=== PATIENT | male | born 1960 | race Caucasian/White ===

== ENCOUNTER 2020-03-21 08:31 | Outpatient (CLI) | payer OTHER ==
--- NOTE | 2020-03-21 13:01 | NM ---
RADIONUCLIDE PARATHYROID SCAN WITH PLANAR AND SPECT-CT IMAGES: HISTORY: Hyperparathyroidism, unspecified RADIOPHARMACEUTICAL:26.2mCi technetium 99m-sestamibi injected intravenously FINDINGS: There is physiologic uptake in the salivary glands and thyroid gland. There is a focus of persistently increased tracer localization in the projection of the left superior parathyroid gland. IMPRESSION: Left superior parathyroid adenoma.
== END 2020-03-21 08:32 | disposition home or self-care (01) ==
LOC: NM 08:31
PROVIDERS: ATTEND Otolaryngology Plastic Surgery within the Head & Neck
DX: E21.3 Hyperparathyroidism, unspecified (principal); D35.1 Benign neoplasm of parathyroid gland
CPT/HCPCS: 78072; A9500

== ENCOUNTER 2020-03-30 05:59 | Outpatient (CLI) | payer OTHER ==
[2020-03-31 14:47] LABS: SARS-CoV-2 MS2 Positive; SARS-CoV-2 N Gene Negative; SARS-CoV-2 S Gene Negative; SARS-CoV-2 by NAA Not Detected (NotDetected); SARS-CoV-2 orf1ab Negative
--- NOTE | 2020-04-02 15:39 | EKG ---
Test Reason : Blood Pressure : / mmHG Vent. Rate : 069 BPM Atrial Rate : 069 BPM P-R Int : 174 ms QRS Dur : 094 ms QT Int : 382 ms P-R-T Axes : 046 -45 043 degrees QTc Int : 409 ms Normal sinus rhythm Left anterior fascicular block Abnormal ECG No previous ECGs available Confirmed by RENETTA MARX M.D. ([id number] on 04/02/2020 3:39:01 PM Referred By: SYED Confirmed By:RENETTA MARX M.D.
== END 2020-03-30 06:00 | disposition home or self-care (01) ==
LOC: LABBT 05:59
PROVIDERS: ATTEND Otolaryngology Plastic Surgery within the Head & Neck
DX: Z01.818 Encounter for other preprocedural examination (principal); E21.3 Hyperparathyroidism, unspecified; Z20.828 Contact with and (suspected) exposure to other viral communicable diseases
CPT/HCPCS: 87635; 93005; 93010; U0003

== ENCOUNTER 2020-04-04 08:15 | Day surgery (SDC) | payer OTHER ==
[2020-03-30 12:37] VITALS: BMI 28.5
[2020-04-04] MEDS ORDERED: Fentanyl 100 MCG/2 ML VIAL ONE ×3 (08:44→12:51)
[2020-04-04 09:07] LABS: Hemoglobin 16.6 g/dL (14.0-18.0); Mean Corpuscular HGB CONC 34.4 g/dL (32.0-36.0); Mean Corpuscular Hemoglobin 33.5 pg (27.0-31.0); Mean Corpuscular Volume 97.3 fL (78.0-98.0); Platelet Count 233 thou/uL (130-400); RBC Distribution Width 11.4 % (11.5-14.5); Red Blood Cell (RBC) Count 4.95 mill/uL (4.70-6.10); White Blood Cell (WBC) Count 8.2 thou/uL (4.8-10.8)
[2020-04-04 09:33] LABS: Anion Gap 15 mmol/L (10-20); BUN (Urea Nitrogen) 10 mg/dL (8.4-25.7); Calc. Creatinine Clearance 121 mL/min (70-130); Calcium 11.9 mg/dL (7.8-10.44); Carbon Dioxide 22 mmol/L (23-31); Chloride 108 mmol/L (98-107); Estimated GFR-MDRD Greater than 90; Glucose 113 mg/dL (80-115); Potassium 3.7 mmol/L (3.5-5.1); Sodium 141 mmol/L (136-145)
[2020-04-04] MEDS ORDERED: Bacitracin Zinc Ointment 30 gm TUBE ONE (10:11)
[2020-04-04] MEDS ORDERED: Lidocaine 1% w/Epinephrine 1:100K 20 ML VIAL ONE (10:11)
[2020-04-04] MEDS ORDERED: Ondansetron PF 4 MG/2 ML Vial ONE (15:40)
[2020-04-04] MEDS ORDERED: PROPOFOL 200 MG/20 ML VIAL ONE (15:40)
[2020-04-04] MEDS ORDERED: Glycopyrrolate 0.2 MG/ML 5 ML SYRINGE ONE (15:40)
[2020-04-04] MEDS ORDERED: Rocuronium Bromide 10 MG/ML (10ML VIAL) ONE (15:40)
[2020-04-04] MEDS ORDERED: Lidocaine 1% PF 5 ML VIAL ONE (15:40)
[2020-04-04] MEDS ORDERED: PHENYLEPHRINE-NS 100 MCG/ML 10 ML SYRINGE ONE (15:40)
[2020-04-04] MEDS ORDERED: Dexamethasone 20 MG/5 ML VIAL ONE (15:40)
[2020-04-04] MEDS ORDERED: EPHEDRINE 25 MG/5 ML SYRINGE ONE (15:40)
--- NOTE | 2020-04-05 14:06 | OP ---
DATE OF PROCEDURE: 04/04/2020 PREOPERATIVE DIAGNOSIS: Hyperparathyroidism. POSTOPERATIVE DIAGNOSES: 1. Hyperparathyroidism. 2. Left superior parathyroid adenoma. PROCEDURES PERFORMED: 1. Left superior parathyroidectomy. 2. Intraoperative laryngeal nerve monitor. ESTIMATED BLOOD LOSS: Less than 5 mL. COMPLICATIONS: None. ANESTHESIA: GETA. DESCRIPTION OF PROCEDURE: The patient was taken to the operating room and placed supine on the table. General endotracheal anesthesia was obtained by the anesthesia staff. Using the indirect GlideScope, the laryngeal electrodes were confirmed to be between the vocal cords bilaterally. The tube was secured in the midline of the upper lip. Following this, shoulder roll was placed and the laryngeal nerve monitor was turned on and remained on throughout the procedure. Following this, a small incision approximately 3 cm in length was made overlying the left thyroid lobe. Dissection was carried through the skin and subcutaneous tissue. Subplatysmal flaps were elevated superiorly and inferiorly and the strap muscles were identified. The strap muscles were on this lateral aspect and the thyroid lobe was identified. Using retractors, the thyroid lobe was exposed and gentle blunt dissection was carried laterally around the left thyroid lobe. Gigantic, 0 to 3 cm parathyroid adenoma was immediately identified and extending medially adjacent to the capsule of the parathyroid adenoma. The bipolar electrocautery device was used to remove the parathyroid adenoma and create hemostasis. Following this, wound was irrigated. Valsalva was performed. There was no evidence of bleeding. Surgicel was placed within the surgical bed. The platysmal muscle was then closed using 3-0 Monocryl stitches and the 4-0 Monocryl subcuticular stitch was placed. Dermabond was placed over the skin. The patient tolerated the procedure well and the intraoperative laryngeal nerve monitor was turned off at this point. Job ID: [id number]
== END 2020-04-04 14:40 | disposition home or self-care (01) ==
LOC: SDC 08:15
PROVIDERS: ATTEND Otolaryngology Plastic Surgery within the Head & Neck
PROC: 0GBM0ZZ Excision of Left Superior Parathyroid Gland, Open Approach (ICD-10-PCS; principal; 2020-04-04)
DX: E21.3 Hyperparathyroidism, unspecified (principal); D35.1 Benign neoplasm of parathyroid gland; I11.9 Hypertensive heart disease without heart failure; E78.5 Hyperlipidemia, unspecified; F17.210 Nicotine dependence, cigarettes, uncomplicated; G89.29 Other chronic pain; M54.9 Dorsalgia, unspecified; Z79.899 Other long term (current) drug therapy
CPT/HCPCS: 36415; 80048; 85027; 88305; J1100; J2405; J2704; J3010

== ENCOUNTER 2020-04-16 09:21 | Outpatient (CLI) | payer OTHER ==
--- NOTE | 2020-04-16 12:35 | MRI ---
MRI CERVICAL SPINE WITHOUT CONTRST: INDICATION: Cervical stenosis. Neck pain. COMPARISON: Correlation is made to a prior CT of the cervical spine from 2008. FINDINGS: The cervical vertebrae maintain height and alignment. There are moderate degenerative changes of the cervical spine with osteophytes from the anterior vertebrae. Loss of disk space is prominent at C5- 6 and C6-7. Mild degenerative anterior wedging at C3, C4, C5, and C6 vertebrae. There is an intervertebral cyst at C2 which is stable from the prior CT. The findings at each level are described. C2-3: Posterior disk bulge and spondylosis efface the subarachnoid space. No central canal or xavier inal stenosis. At C3-4: Posterior disk bulge and spondylosis compress the anterior cord. Mild foraminal narrowing bilaterally due to facet and uncinate hypertrophy. Prominent facet arthrosis on the right. Moderate central canal stenosis with cord compression. Sagittal images show evidence of mild increased signa l within the cord to the left of midline suggesting early changes of myelomalacia associated with thi s cord compression. C4-5: Posterior disk bulge and spondylosis abut the mildly impinge on the anterior cord without sign ificant cord compression. Mild bilateral foraminal narrowing due to uncinate hypertrophy and facet h ypertrophy. C5-6: Posterior disk bulge and spondylosis efface the anterior subarachnoid space. No cord impingem ent. Mild left foraminal encroach. C6-7: There is a posterior disk bulge with spondylosis which impinges on and mildly flattens the ant erior cord. Bilateral foraminal narrowing due to facet and uncinate hypertrophy. C7-T1: Disk bulge and spondylosis efface the anterior subarachnoid space and abut the anterior cord without significant cord impingement or compression. IMPRESSION: Posterior disk and spondylitic changes produce central canal stenosis at multiple levels. There is s ignificant cord compression at C3-4 with evidence of early myelomalacia at this level within the cord . POS: AGW
== END 2020-04-16 09:22 | disposition home or self-care (01) ==
LOC: SCSMRI 09:21
PROVIDERS: ATTEND Orthopaedic Surgery Hand Surgery
DX: M48.02 Spinal stenosis, cervical region (principal); M47.812 Spondylosis without myelopathy or radiculopathy, cervical region; M50.81 Other cervical disc disorders, high cervical region; G95.89 Other specified diseases of spinal cord
CPT/HCPCS: 72141

== ENCOUNTER 2020-05-04 06:23 | Outpatient (CLI) | payer OTHER ==
[2020-05-04 16:30] LABS: SARS-CoV-2 MS2 Positive; SARS-CoV-2 N Gene Negative; SARS-CoV-2 S Gene Negative; SARS-CoV-2 by NAA Not Detected (NotDetected); SARS-CoV-2 orf1ab Negative
== END 2020-05-04 06:24 | disposition home or self-care (01) ==
LOC: LABBT 06:23
PROVIDERS: ATTEND Neurological Surgery
DX: M47.812 Spondylosis without myelopathy or radiculopathy, cervical region (principal); Z20.828 Contact with and (suspected) exposure to other viral communicable diseases
CPT/HCPCS: 87635; U0003

== ENCOUNTER 2020-05-09 07:12 | Day surgery (SDC) | payer OTHER ==
[2020-05-08 12:27] VITALS: BMI 27.8
--- NOTE | 2020-05-08 21:48 | HP ---
HISTORY OF PRESENT ILLNESS: Mr. Mendoza is a 60-year-old gentleman, referred to us by Dr. La for evaluation of upper extremity weakness and dysfunction. Reportedly since December, he has had weakness and numbness in his hands and then later into his legs. At this time, he is actually using a cane and at sometimes, he is unable to perform his normal activities of daily living. MRI scan of the cervical spine performed shows high-grade cervical stenosis at C3-C4 with signal change in the cervical spinal cord at this level. This most certainly is the culprit in his presentation. PAST MEDICAL HISTORY: Significant for; 1. Cataracts. 2. Hypertension. 3. Heart disease. PAST SURGICAL HISTORY: Parathyroidectomy. CURRENT MEDICATIONS: 1. Meloxicam. 2. Lisinopril. 3. Atorvastatin. 4. Tramadol. 5. Amlodipine. 6. Gabapentin. ALLERGIES: NO KNOWN DRUG ALLERGIES. ASSESSMENT: Cervical myelopathy. PLAN: Dr. Morales met with the patient, reviewed imaging, advocated for C3-C4 ACDF. He explained to the patient about risks, benefits, and alternatives to the procedure. The patient expressed understanding and elected to move forward with surgery as discussed. I do believe the patient is mentally competent and capable of making medical decisions for himself. We will move forward with surgery as planned. Job ID: [id number]
[2020-05-09] MEDS ORDERED: Fentanyl 100 MCG/2 ML VIAL ONE (08:23)
[2020-05-09] MEDS ORDERED: Midazolam HCl 2 mg/2 ml Vial ONE (08:23)
--- NOTE | 2020-05-09 10:07 | OP ---
DATE OF PROCEDURE: 05/09/2020 [employer] AND [employer] MAN: Rey Vargas PA-C INDICATION: Pain. DIAGNOSIS: Cervical spondylotic myelopathy. PROCEDURE PERFORMED: Anterior cervical diskectomy and fusion, C3-C4. ANESTHESIA: General. DESCRIPTION OF PROCEDURE: The patient was brought into the operating room and placed under general anesthesia. He was placed on the table in a supine position. A transverse incision was planned over the lateral aspect of the neck on the right. After prepping and draping and after an appropriate preoperative pause, the incision was created. The soft tissues were swept away from midline. The underlying platysma muscle was identified and incised. A blunt tissue plane anterior to the sternocleidomastoid muscle was used to gain access to the prevertebral space. Self-retaining retractors were placed. An annulotomy was performed in the C3-C4 disk space. All disk material as well as anterior and posterior osteophytes were removed. After completing the decompression, a 7-mm lordotic PEEK cage packed with allograft and autograft material was placed within the interbody space. A separate anterior cervical plate was then fashioned to the front of spine and secured with a total of 4 fixed screws. Midline and lateral structures were inspected and found to be free from significant trauma. The wound was irrigated. Hemostasis was maintained throughout. The wound was then closed in anatomic layers and a pressure dressing was applied. There were no known procedural complications. Job ID: [id number]
[2020-05-09] MEDS ORDERED: Tamsulosin HCl 0.4 MG CAP ONE (10:43)
[2020-05-09] MEDS ORDERED: Glycopyrrolate 0.2 MG/ML 5 ML SYRINGE ONE (12:04)
[2020-05-09] MEDS ORDERED: Ondansetron PF 4 MG/2 ML Vial ONE (12:04)
[2020-05-09] MEDS ORDERED: Dexamethasone 20 MG/5 ML VIAL ONE (12:04)
[2020-05-09] MEDS ORDERED: PHENYLEPHRINE-NS 100 MCG/ML 10 ML SYRINGE ONE (12:04)
[2020-05-09] MEDS ORDERED: Rocuronium Bromide 10 MG/ML (10ML VIAL) ONE (12:04)
[2020-05-09] MEDS ORDERED: Ketorolac Tromethamine 30 MG/ML VIAL ONE (12:04)
[2020-05-09] MEDS ORDERED: PROPOFOL 200 MG/20 ML VIAL ONE (12:04)
[2020-05-09] MEDS ORDERED: diphenhydrAMINE 50 MG/ML VIAL ONE (12:04)
== END 2020-05-09 12:48 | disposition home or self-care (01) ==
LOC: SDC 07:12
PROVIDERS: ATTEND Neurological Surgery
PROC: 0RT30ZZ Resection of Cervical Vertebral Disc, Open Approach (ICD-10-PCS; principal; 2020-05-09)
PROC: 0RG10A0 Fusion of Cervical Vertebral Joint with Interbody Fusion Device, Anterior Approach, Anterior Column, Open Approach (ICD-10-PCS; principal; 2020-05-09)
DX: M47.12 Other spondylosis with myelopathy, cervical region (principal); I11.9 Hypertensive heart disease without heart failure; Z79.899 Other long term (current) drug therapy
CPT/HCPCS: 76000; C1713; C1776; J0690; J1100; J1200; J1885; J2250; J2405; J2704; J3010

== ENCOUNTER 2021-06-18 08:48 | Outpatient (CLI) | payer OTHER | END 2021-06-18 08:49 | disposition home or self-care (01) | LOC: BICCT 08:48 | PROVIDERS: ATTEND Family Medicine | DX: Z12.2 Encounter for screening for malignant neoplasm of respiratory organs (principal); F17.210 Nicotine dependence, cigarettes, uncomplicated | CPT/HCPCS: 71271 ==

== ENCOUNTER 2022-07-03 15:56 | Outpatient (CLI) | payer OTHER | END 2022-07-03 15:57 | disposition home or self-care (01) | LOC: BICCT 15:56 | PROVIDERS: ATTEND Family Medicine | DX: Z12.2 Encounter for screening for malignant neoplasm of respiratory organs (principal); F17.210 Nicotine dependence, cigarettes, uncomplicated; I25.10 Atherosclerotic heart disease of native coronary artery without angina pectoris; N20.0 Calculus of kidney; N28.1 Cyst of kidney, acquired | CPT/HCPCS: 71271 ==